=== PATIENT | male | born 1995 | race Two or more races ===

== ENCOUNTER 2017-11-22 20:12 | Emergency (ER) | payer OTHER ==
[2017-11-22] MEDS ORDERED: METHYLPREDNISOLONE INJ 125 MG/2 ML SDV IM ONE (21:07)
--- NOTE | 2017-11-22 21:14 | ER Document Report ---
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[employer], presents to the emergency room for 2-3 day history of sore throat, swollen tonsils, difficulty swallowing, with fevers, states he was out on a field exercise which he was released from and advised to follow-up with medical, he is not currently taking any medication Past Medical History - General Information source: Patient - Social History Smoking Status: Unknown if Ever Smoked Family History: Reviewed & Not Pertinent Review of Systems - Review of Systems Constitutional: Fever EENT: See HPI Cardiovascular: No symptoms reported Respiratory: No symptoms reported Gastrointestinal: No symptoms reported Genitourinary: No symptoms reported Male Genitourinary: No symptoms reported Musculoskeletal: No symptoms reported Skin: No symptoms reported Hematologic/Lymphatic: No symptoms reported Neurological/Psychological: Headaches -: Yes All other systems reviewed and negative Physical Exam - Vital signs Vitals: Temp Pulse Resp BP Pulse Ox 98.5 F 96 17 120/67 99 11/22/17 20:33 11/22/17 20:33 11/22/17 20:33 11/22/17 20:33 11/22/17 20:33 Interpretation: Normal - General General appearance: Appears well, Alert - HEENT Head: Normocephalic, Atraumatic Eyes: Normal Conjunctiva: Normal Extraocular movements intact: Yes Eyelashes: Normal Pupils: PERRL Nasal: Normal Mucous membranes: Normal Pharynx: Erythema, Exudate, Tonsillar hypertrophy. No: Potential airway comprom. Neck: Lymphadenopathy - Respiratory Respiratory status: No respiratory distress Chest status: Nontender Breath sounds: Normal Chest palpation: Normal - Cardiovascular Rhythm: Regular Heart sounds: Normal auscultation Murmur: No - Abdominal Inspection: Normal Distension: No distension Bowel sounds: Normal Tenderness: Nontender Organomegaly: No organomegaly - Back Back: Normal, Nontender - Extremities General upper extremity: Normal inspection, Nontender, Normal color, Normal ROM , Normal temperature General lower extremity: Normal inspection, Nontender, Normal color, Normal ROM , Normal temperature, Normal weight bearing. No: Syd's sign - Neurological Neuro grossly intact: Yes Cognition: Normal Orientation: AAOx4 [place] Coma Scale Eye Opening: Spontaneous Garry Coma Scale Verbal: Oriented [place] Coma Scale Motor: Obeys Commands [place] Coma Scale Total: 15 Speech: Normal Motor strength normal: LUE, RUE, LLE, RLE Sensory: Normal - Psychological Associated symptoms: Normal affect, Normal mood - Skin Skin Temperature: Warm Skin Moisture: Dry Skin Color: Normal Course - Re-evaluation Re-evalutation: 11/22/17 22:20 Patient resting on stretcher, appears uncomfortable but nontoxic, vital signs are stable, rapid strep positive for strep pharyngitis, patient reports allergy to penicillin, therefore will be started on Keflex 500 mg twice daily, and discharged with prescription as well as instructions for follow-up, advised to return if symptoms worsen, patient acknowledges understanding and agreement with this plan - Vital Signs Vital signs: Temp Pulse Resp BP Pulse Ox 98.5 F 96 17 120/67 99 11/22/17 20:33 11/22/17 20:33 11/22/17 20:33 11/22/17 20:33 11/22/17 20:33 Discharge - Discharge Clinical Impression: Strep pharyngitis Condition: Stable Disposition: HOME, SELF-CARE Instructions: Sore Throat ([facility]) Additional Instructions: Drink plenty of fluids. Tylenol or Motrin as needed for fever. Follow-up with your primary care provider in one to 2 days. Return to the emergency room immediately if symptoms worsen or any additional concerns. Prescriptions: Cephalexin Monohydrate [Keflex 500 mg Capsule] 500 mg PO BID #20 capsule Forms: Return to Work
[2017-11-22] MEDS ORDERED: CEPHALEXIN 500 MG CAPSULE PO ONE (22:19)
[2017-11-22 22:37] VITALS: BP 130/75
== END 2017-11-22 22:52 | disposition home or self-care (01) ==
LOC: ER 20:12
DX: J02.0 Streptococcal pharyngitis (principal); R50.9 Fever, unspecified
CPT/HCPCS: 99283; 96372; 87880; J2930; 87070

== ENCOUNTER 2018-01-16 18:45 | Emergency (ER) | payer OTHER ==
--- NOTE | 2018-01-16 19:56 | ER Document Report ---
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 He reports that he feels weak, has a hard cough, sneezing, nausea x 2 days. pt was seen at [facility] yesterday for same. Treated with Mucinex Associated Symptoms: Body/muscle aches, Nonproductive cough, Fever, Headache, Nausea, Vomiting Exacerbated by: Denies Relieved by: Denies Similar symptoms previously: No Recently seen / treated by doctor: No Past Medical History - General Information source: Patient - Social History Smoking Status: Never Smoker Frequency of alcohol use: None Drug Abuse: None Lives with: Friend Family History: Reviewed & Not Pertinent - Medical History Medical History: Negative Renal/ Medical History: Denies: Hx Peritoneal Dialysis Vertical Provider Document - CONSTITUTIONAL Agree With Documented VS: Yes Exam Limitations: No Limitations - INFECTION CONTROL TRAVEL OUTSIDE OF THE [place] IN LAST 30 DAYS: No - HEENT HEENT: Atraumatic, PERRLA, Pharyngeal Erythema. negative: Pharyngeal Exudate - NECK Neck: Normal Inspection, Supple - RESPIRATORY Respiratory: Breath Sounds Normal, No Respiratory Distress - CARDIOVASCULAR Cardiovascular: Regular Rate, Regular Rhythm - GI/ABDOMEN Gastrointestinal: Abdomen Soft, Abdomen Tender - Mild generalized abdominal tenderness. No guarding. No rebound. Normal bowel sounds - MUSCULOSKELETAL/EXTREMETIES Musculoskeletal/Extremeties: MADANELLE, FROM - NEURO Level of Consciousness: Awake, Alert, Appropriate - DERM Integumentary: Warm, Dry, No Rash Course - Re-evaluation Re-evalutation: 01/16/18 19:56 History and physical are consistent with an upper respiratory viral infection. No signs or symptoms of dehydration, pneumonia, sepsis. 01/16/18 20:32 Chest x-ray is negative. Results discussed with patient 01/16/18 20:38 CBC unremarkable. Results discussed with patient. - Vital Signs Vital signs: Temp Pulse Resp BP Pulse Ox 99.4 F 99 20 124/58 L 97 01/16/18 18:52 01/16/18 18:52 01/16/18 18:52 01/16/18 18:52 01/16/18 18:52 - Laboratory Result Diagrams: 01/16/18 20:15 Discharge - Discharge Clinical Impression: Viral illness Condition: Stable Disposition: HOME, SELF-CARE Instructions: Acetaminophen, Viral Syndrome ([facility]), Cough Suppressant & Expectorant Medications Additional Instructions: Your lab work and chest x-ray were negative today I recommend an [id number] antihistamine/decongestant for symptom control I am prescribing a cough suppressant. Take as prescribed Recommend rest and hydration. Follow-up with your primary care/[facility] tomorrow Prescriptions: Phenylephrine HCl/Cod/Prometh [Phenergan Vc-Codeine Syrup] 5 - 10 ml PO Q4H # 120 ml Forms: Return to Work
[2018-01-16 20:26] LABS: ABSOLUTE MONOCYTES (AUTO) 0.8 10^3/uL (0.1-1.4); ABSOLUTE NEUT (AUTO) 3.5 10^3/uL (1.7-8.2); BASOPHILS % (AUTO) 0.8 % (0-2); EOSINOPHILS % (AUTO) 0.2 % (0-6); HEMATOCRIT 46.5 % (37.9-51.0); HEMOGLOBIN 15.6 g/dL (13.5-17.0); LYMPHOCYTES % (AUTO) 18.7 % (13-45); MEAN CORPUSCULAR HEMOGLOBIN 30.7 pg (27.0-33.4); MEAN CORPUSCULAR HGB CONC 33.5 g/dL (32.0-36.0); MEAN CORPUSCULAR VOLUME 91 fl (80-97); MONOCYTES % (AUTO) 14.4 % (3-13); PLATELET COUNT 206 10^3/uL (150-450); RED BLOOD COUNT 5.08 10^6/uL (4.35-5.55); RED CELL DISTRIBUTION WIDTH 14.7 % (11.5-14.0); SEGMENTED NEUTROPHILS % (AUTO) 65.9 % (42-78); TOTAL CELLS COUNTED % (AUTO) 100 %; WHITE BLOOD COUNT 5.3 10^3/uL (4.0-10.5)
--- NOTE | 2018-01-16 20:26 | RADIOLOGY REPORT (SQ) ---
EXAM DESCRIPTION: CHEST 2 VIEWS COMPLETED DATE/TIME: 01/16/2018 8:06 pm REASON FOR STUDY: cough COMPARISON: None. TECHNIQUE: Frontal and lateral radiographic views of the chest acquired. NUMBER OF VIEWS: Two view. LIMITATIONS: None. FINDINGS: LUNGS AND PLEURA: No opacities, masses or pneumothorax. No pleural effusion. MEDIASTINUM AND HILAR STRUCTURES: No masses or contour abnormalities. HEART AND VASCULAR STRUCTURES: Heart normal size. No evidence for failure. BONES: No acute findings. HARDWARE: None in the chest. OTHER: No other significant finding. IMPRESSION: NO SIGNIFICANT RADIOGRAPHIC FINDING IN THE CHEST. TECHNICAL DOCUMENTATION: JOB ID: [id number] [employer]- All Rights Reserved Reading location - IP/workstation name: [email or web address]
[2018-01-16 20:57] VITALS: BP 125/71
== END 2018-01-16 20:56 | disposition home or self-care (01) ==
LOC: ER 18:45
DX: B34.9 Viral infection, unspecified (principal); R53.1 Weakness; R05 Cough; R06.7 Sneezing; M79.1 Myalgia; R50.9 Fever, unspecified; R51 Headache; R11.2 Nausea with vomiting, unspecified; R10.817 Generalized abdominal tenderness
CPT/HCPCS: 36415; 71046; 85025; 99283